=== PATIENT | female | born 1980 | race Caucasian/White ===

== ENCOUNTER 2019-01-23 13:41 | Inpatient (IN) ==
[2019-01-23] MEDS ORDERED: Ibuprofen 800 MG TABLET PO STA (14:04)
--- NOTE | 2019-01-23 14:06 | Emergency Department Note ---
Disposition Clinical Impression: Hallucinations, Methamphetamine dependence Disposition: Admitted As Inpatient Condition: Fair Time of Disposition: 15:15 General Adult HPI - General Chief complaint: ED Psychiatric Symptoms Stated complaint: Si Time Seen by Provider: 01/23/19 13:42 Source: patient, EMS Limitations: no limitations - History of Present Illness HPI Narrative: Patient presents pink slip from [place] emergency department. She has a history of methamphetamine use, has been in rehabilitation and had no methamphetamine for the last 2 weeks. Is having command hallucinations to break a razor and cut herself. She is not a cutter by history. She has had previous suicide attempts. She says she does not want to , but the command hallucinations are very disturbing. She had a negative laboratory evaluation at [place]. She was complaining of a headache that is similar to her prior headaches, nothing different per her report to me, no fever, confusion, vomiting, peripheral neurologic symptoms. She did not get much relief with the Tylenol given there. We will give her some ibuprofen here. She denies any neck pain or other complaint. Pain Scale: 6 - Related Data Home Medications Medication Instructions Recorded Confirmed Aripiprazole [Abilify Maintena] 300 mg IM QMONTH 01/23/19 01/23/19 Benztropine [Cogentin] 0.5 mg PO BID 01/23/19 01/23/19 Allergies Allergy/AdvReac Type Severity Reaction Status Date / Time No Known Allergies Allergy Verified 01/23/19 12:29 All systems ED: reviewed and negative except as stated. Past Medical History - Past Medical History Medical history: Reports: no medical history Surgical history: Reports: other (Tubal ligation) Psychiatric history: Reports: anxiety, bipolar, depression, prior suicide attempt, schizophrenia, previous psychiatric hospitalization COMMUNITY WORK[employer] history: Reports: bilateral tubal ligation - Social History Smoking Status: Current every day smoker Smokeless Tobacco Status: No Alcohol use: Reports: none Drug use: Reports: marijuana, methamphetamine Physical Exam Vital signs noted, please see nurses notes. General: Well-developed, well-nourished patient sitting up in bed who appears non-toxic and in no distress. Head: Atraumatic, normocephalic. Neck: Normal movement. Eyes: Sclera anicteric. ENT: Mucous membranes moist. Respiratory: Normal respiratory pattern without respiratory distress. Skin: Warm and dry, no appreciable rash. Neurological: Awake and alert with normal speech and mental status. Converses normally. No focal deficits or lateralizing signs. Psychiatric: Normal mood and affect at the time of my evaluation. - General Limitations: no limitations General appearance: alert, in no apparent distress Course Vital Signs Temperature 98.3 F 01/23/19 13:48 Pulse Rate 108 01/23/19 13:48 Respiratory Rate 16 01/23/19 13:48 Blood Pressure 128/84 01/23/19 13:48 O2 Sat by Pulse Oximetry 99 01/23/19 13:48 Temperature 98.3 F 01/23/19 13:48 Pulse Rate 108 01/23/19 13:48 Respiratory Rate 16 01/23/19 13:48 Blood Pressure 128/84 01/23/19 13:48 O2 Sat by Pulse Oximetry 99 01/23/19 13:48 Oxygen Delivery Oxygen Delivery Room Air
[2019-01-23] MEDS ORDERED: *HR* LORazepam 1 MG TABLET PO PRN (16:45)
[2019-01-23] MEDS ORDERED: *HR* LORazepam 2 MG/ML VIAL IM PRN (16:45)
[2019-01-23] MEDS ORDERED: Acetaminophen 325 MG TABLET PO PRN (16:45)
[2019-01-23] MEDS ORDERED: Haloperidol Lactate 5 MG/ML VIAL IM PRN (16:45)
[2019-01-23] MEDS ORDERED: Mag Hydrox/Al Hydrox/Simeth 30 ML UDC PO PRN (16:45)
[2019-01-23] MEDS ORDERED: MOM Conc 10 ML UD.LIQ PO PRN (16:45)
[2019-01-23] MEDS ORDERED: traZODone 50 MG TABLET PO PRN (16:45)
[2019-01-23] MEDS: hydrOXYzine pamoate 25 MG CAPSULE PO PRN (17:48)
[2019-01-24] MEDS: Nicotine 21 MG PATCH.TD24 TD SCH (09:31)
[2019-01-24] MEDS: hydrOXYzine pamoate 25 MG CAPSULE PO PRN ×3 (09:45→20:56)
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
[2019-01-24] MEDS: ARIPiprazole 10 MG TABLET PO SCH (12:16)
[2019-01-24] MEDS: Ibuprofen 400 MG TABLET PO PRN ×2 (15:26→20:55)
[2019-01-25] MEDS: Nicotine 21 MG PATCH.TD24 TD SCH (08:54)
[2019-01-25] MEDS: ARIPiprazole 10 MG TABLET PO SCH (08:54)
[2019-01-25 09:32] VITALS: BP 111/68
--- NOTE | 2019-01-25 10:20 | Discharge Summary ---
Date of Encounter: 01/25/19 Time of Encounter: 10:17 Diagnosis - Discharge Diagnosis (1) Bipolar disorder Status: Acute Qualifiers: Active/Remission status: remission status unspecified Qualified Code(s): F31.9 - Bipolar disorder, unspecified (2) PTSD (post-traumatic stress disorder) Status: Acute (3) Methamphetamine abuse Status: Acute Medications - Discharge Medications Prescriptions: ARIPiprazole [Abilify] 10 mg PO DAILY #30 tablet Buspirone HCl [Buspar] 7.5 mg PO BID #90 tablet Benztropine [Cogentin] 0.5 mg PO BID #60 tablet Aripiprazole [Abilify Maintena] 300 mg IM QMONTH 01/23/19 [History] ARIPiprazole [Abilify] 10 mg PO DAILY #30 tablet 01/25/19 [Rx] Benztropine [Cogentin] 0.5 mg PO BID #60 tablet 01/25/19 [Rx] Buspirone HCl [Buspar] 7.5 mg PO BID #90 tablet 01/25/19 [Rx] Allergy/AdvReac Type Severity Reaction Status Date / Time No Known Allergies Allergy Verified 01/23/19 12:29 Provider Date of admission: 01/24/19 11:33 Primary care physician: PCP NONE Discharging clinician: Piedad Snyder Psychiatry Exam - Constitutional Vitals: Temp Pulse Resp BP Pulse Ox 98 F 90 16 111/68 99 01/25/19 09:00 01/25/19 09:00 01/25/19 09:00 01/25/19 09:00 01/25/19 09:00 General appearance: age & developmentally appropriate, well-groomed, well- nourished - Musculoskeletal Gait: normal Station: relaxed Strength & Tone: normal for patient - Psychiatric Patient Orientation: Yes Person, Yes Time, Yes Place Level of alertness: Alert Behavior: calm, cooperative Psychomotor activity: Normal Eye Contact: Maintains Eye Contact Mood Description: Euthymic/stable Affect description: congruent with mood, full range Speech Volume: Normal Speech pattern: normal rate, normal rhythm, normal tone, fluent, spontaneous Language & Vocabulary: consistent with education Thought Process: Linear, Goal Oriented Thought Content: No Suicidal ideation, No Homicidal ideation, No Overt delusions Perceptual Disturbances: No Auditory hallucinations, No Visual hallucinations Attention Span Ability: Capable of Focused Attention Memory Description: Grossly Intact Patient Reliability: Reliable Historian Fund of knowledge: Yes abstraction ability, Yes aware of current events Intelligence Estimate: Average Judgment: Fair Insight: Partial Hospital Course Hospital course: Ms. Sanchez is a 38 year old female who was admitted for SI/AH. Client is currently in rehab at [facility]. Had been taking Abilify Maintena and doing well but was not able to get her last monthly injection due to being in a residential rehab. Client states she started to go downhill after missing her last dose. This admission client was started on oral Abilify and Buspar for anxiety at her request and she immediately started feeling better. An Abilify Maintena injection was ordered for her and will be on the unit to administer this afternoon. Plan is to discharge client back to her rehab as soon as she gets her shot. Client states she feels much better being back on her medications. Denying SI, intent, or plan today. Denying any further hallucinations. Denying HI. Has been calm and cooperative on the unit. Pleasant, engaged, and attending groups. Bright and future oriented today. Wants to continue with AOD treatment and has a safe place to continue this. Total time spent with client greater than 30 minutes. Patient was educated of her diagnosis and the risks, benefits, and side effects of this treatment and alternative treatment options and was monitored for responsiveness and side effects. Mood, anxiety, sleep, appetite, and interest improved, as did future orientation. Self-harm thoughts subsided, thinking cleared, psychosis resolved, and mood stabilized. Patient was able to attend both individual and group therapy sessions as well as meeting with the psychiatrist daily and urged to discuss any medication or treatment issues or other concerns. The patient was educated primarily by verbal means about their diagnosis and manifestations in their life. The option for treatment including group and individual therapy programming was offered to the patient in the use of medications with all their potential risks, benefits, and side effects were discussed with the patient at length. The patient was given the opportunity to ask questions and was noted to participate in the treatment in the planning process. The patient felt ready and eager to be discharged from the inpatient psychiatric unit to continue on with treatment as an outpatient. The patient agreed that she is safe for this disposition. The patient was considered to be able to participate in informed consent and decision making with respect to medical, legal, and financial issues of the time of discharge. At the time of discharge the patient adamantly denied any concerns for lethality including suicidal or homicidal thoughts ideations or plans and was future oriented toward ongoing mental health care, medical follow-up and sobriety. - Time Spent with Patient Total time spent providing and/or coordinating discharge services: Greater than 30 minutes Assessment and Plan - Patient/Caregiver Discharge Instructions Activity: resume usual activities as tolerated Diet: regular diet - Follow up Plan Follow up with: [facility] [Outside] Functional capacity at discharge: independent ambulation Overall status at discharge: Stable Disposition: Transfer Inpatient Rehab Fac Quality - Multiple Antipsychotics Patient discharged on 2 or more antipsychotic medications: No Procedures - Procedures Procedures: Medication Management, Crisis Stabilization, Supportive Therapy, Group Therapy
[2019-01-25] MEDS: Ibuprofen 400 MG TABLET PO PRN (10:26)
[2019-01-25] MEDS: hydrOXYzine pamoate 25 MG CAPSULE PO PRN (11:03)
[2019-01-25] MEDS ORDERED: ARIPIPRAZOLE 300 MG IM SCH (11:45)
== END 2019-01-25 11:58 | DRG 753 ==
LOC: EMEROOARM 13:41 → INTOOBSV 15:13 → 1ANU 15:13
PROVIDERS: ADMIT Psychiatry & Neurology Psychiatry; ATTEND Psychiatry & Neurology Psychiatry